=== PATIENT | male | born 1990 | race African-American/Black ===

== ENCOUNTER 2019-07-10 14:20 | Emergency (ER) | payer SELFPAY ==
[~2019-07-10] VITALS: Ht 170.2 cm; Wt 150.9 kg
[~2019-07-10 14:20] MED LIST: BP MED; IBU800 M1 PO
[2019-07-10 14:30] VITALS: TEMP 98.8
[2019-07-10 15:58] LABS: BASO % 0.3 % (0.0-2.0); EOS # 0.2 (0.0-0.7); EOS % 1.7 % (0-4.0); GRAN # 8.8 (1.4-6.5); GRAN % 75.6 % (42.2-75.2); HEMATOCRIT 43.8 % (42.0-52.0); HEMOGLOBIN 14.5 g/dl (13.5-18.0); LYMPH # 1.1 (1.2-3.4); LYMPH % 9.5 % (20.0-51.0); MEAN CELL VOLUME 98 fl (80.0-100.0); MEAN CORPUSCULAR HEMOGLOBIN 32 pg (27.0-31.0); MEAN CORPUSCULAR HGB CONC 33 g/dl (33.0-37.0); MEAN PLATELET VOLUME 8.8 fl (7.4-10.4); MONO # 1.5 (0.1-0.6); MONO % 12.6 % (1.7-9.3); PLATELET COUNT 274 K/mm3 (130-400); RED BLOOD COUNT 4.47 M/mm3 (4.20-5.60); REDCELL DISTRIBUTION WIDTH-CV 12.7 % (11.5-14.5)
[2019-07-10 16:09] LABS: ALBUMIN 3.7 gm/dL (3.5-5.0); BILIRUBIN,TOTAL 0.3 mg/dL (0.0-1.0); C-REACTIVE PROTEIN 1.7 mg/dL (0.0-0.9); CALCIUM 8.6 mg/dL (8.4-10.2); CREATININE, serum 0.74 (0.66-1.25); POTASSIUM 4.2 mmol/L (3.4-5.0); TOTAL PROTEIN 6.8 gm/dL (6.4-8.2)
[2019-07-10 16:23] LABS: STREP SCREEN NEGATIVE
[2019-07-10 16:36] LABS: COLLECTION METHOD CLEAN CATCH
[2019-07-10 16:51] LABS: MUCOUS Present /lpf; PH 5 (5-8); SQUAMOUS EPITHELIAL 0-2 /hpf; URINE APPEARANCE Hazy; URINE BACTERIA None Seen /hpf; URINE BILIRUBIN Negative (NEGATIVE); URINE BLOOD 1+ (NEGATIVE); URINE COLOR Straw; URINE GLUCOSE Negative (NEGATIVE); URINE KETONE Negative (NEGATIVE); URINE LEUKOCYTE ESTERASE Negative (NEGATIVE); URINE NITRATE Negative (NEGATIVE); URINE PROTEIN(semi-quant) Negative (NEGATIVE); URINE RBC 0-2 /hpf; URINE UROBILINOGEN Negative (NEGATIVE)
[2019-07-10] MEDS ORDERED: HCTZ 25MG TAB25 MG PO (17:15)
[2019-07-10 17:26] VITALS: BP 181/90; PULSE 84
== END 2019-07-10 17:28 | disposition home or self-care (01) ==
LOC: COL.ER 14:20
PROVIDERS: Physician Assistant
DX: B34.9 Viral infection, unspecified (principal); I10 Essential (primary) hypertension; F17.210 Nicotine dependence, cigarettes, uncomplicated
CPT/HCPCS: J2405; J7030

== ENCOUNTER 2019-08-28 16:41 | Emergency (ER) | payer SELFPAY ==
[~2019-08-28] VITALS: Ht 172.7 cm; Wt 150.0 kg
[~2019-08-28 16:41] MED LIST changes: +HCTZ 25MG TAB25 MG PO
[2019-08-28 17:07] VITALS: BP 151/95; TEMP 97.7
[2019-08-28] MEDS ORDERED: DOXYCYCLINE HY100 MG PO (18:00)
[2019-08-28] MEDS ORDERED: OMNICEF 300MG300 MG PO (18:00)
[2019-08-28 18:25] VITALS: PULSE 93
== END 2019-08-28 18:25 | disposition home or self-care (01) ==
LOC: COL.ER 16:41
DX: L02.214 Cutaneous abscess of groin (principal); Z79.1 Long term (current) use of non-steroidal anti-inflammatories (NSAID)